=== PATIENT | female | born 1985 | race Caucasian/White ===

== ENCOUNTER 2016-08-19 12:11 | Emergency (ER) | payer MEDICAID ==
[~2016-08-19 12:11] MED LIST: ABILIFY2 MG PO; ABILIFY30 MG; ALBUTEROL SULF8.5 G2 IH; ALPRAZOLAM1 M3 PO; AMOXICILLIN875 MG PO; ATIVAN1 MG; ATIVAN1 MG PO; BUSPAR15 MG; CIPRO500 M2 PO; COMPAZINE10 MG PO; COUMADIN4 MG PO; COUMADIN7.5 MG PO; DOXYCYCLINE HY100 M5 PO; DOXYCYCLINE HY100 MG PO; FLAGYL500 MG PO; FLEXERIL10 MG PO; HYDROCODON-ACE1 EAC7 PO; IBUPROFEN800 MG PO; IMODIUM A-D2 MG PO; INVEGA6 MG PO; KLONOPIN0.5 MG; LAMICTAL100 M1 PO; LEXAPRO10 MG; LOESTRIN 24 FE1 TAB PO; LORCET HD CAPSU1 CAP; LOVENOX100 MG/ML SQ; LUVOX PO; LYRICA75 MG PO; MACROBID 100 M100 M1 PO; MELATONIN3 MG PO; MELOXICAM7.5 M1 PO; METHADONE10 MG/ML PO; MOTRIN600 MG PO; MOTRIN800 MG PO; NEURONTIN300 MG PO; NEURONTIN400 M1 PO; NEURONTIN400 MG PO; NORCO 10/325 TA1 TAB PO; NORCO 10/3251 TA1 PO; NORCO 5/325 TAB1 TAB PO; NORCO 5/3251 TAB PO; NUCYNTA50 M1 PO; OMEPRAZOLE40 MG PO; OXYIR5 MG PO; PERCOCET 5/3251 TAB PO; POTASSIUM CHLO10 ME1 PO; SAPHRIS10 MG SL; SEROQUEL XR300 MG; SEROQUEL XR400 M1 PO; SEROQUEL XR400 MG PO; SEROQUEL300 MG; SEROQUEL400 MG; SKELAXIN800 MG PO; SOMA350 MG PO; TRAZODONE HCL300 M1 PO; ULTRAM50 MG PO; VALIUM5 M1 PO; VIBRAMYCIN100 MG PO; VICODIN 5/500 T1 TAB PO; XANAX0.25 MG PO; XANAX1 MG PO; ZOFRAN ODT4 MG/UDTAB PO; ZOLOFT100 M1 PO; ZYPREXA10 MG; ZYPREXA10 MG PO
[2016-08-19] MEDS ORDERED: ZANAFLEX2 M3 PO (12:13)
[2016-08-19] MEDS ORDERED: KLONOPIN1 M1 PO (12:13)
[2016-08-19] MEDS ORDERED: ZYPREXA10 M1 PO (12:13)
[2016-08-19] MEDS ORDERED: AMBIEN5 M1 PO (12:14)
[2016-08-19] MEDS ORDERED: NORCO 5-325 TA1 EACH PO ×2 (13:37→14:08)
[2016-08-19] MEDS ORDERED: MINIPRESS2 M1 PO (13:37)
[2016-08-19] MEDS ORDERED: TRILEPTAL600 M2 PO (13:38)
== END 2016-08-19 14:41 ==
LOC: EDMED 12:11
DX: S39.012A Strain of muscle, fascia and tendon of lower back, initial encounter (principal); F17.210 Nicotine dependence, cigarettes, uncomplicated; W22.8XXA Striking against or struck by other objects, initial encounter; Y93.71 Activity, boxing; Y99.8 Other external cause status